=== PATIENT | female | born 1980 | race Caucasian/White ===

== ENCOUNTER 2016-11-27 18:27 | Emergency (ER) | payer OTHER ==
[~2016-11-27] VITALS: Ht 157.5 cm; Wt 77.1 kg
[2016-11-27] MEDS ORDERED: HYDROCODONE-AP1 EAC6 PO (19:41)
[2016-11-27 20:37] VITALS: BP 139/82
== END 2016-11-27 20:37 | disposition home or self-care (01) ==
LOC: ER 18:27
DX: S93.401A Sprain of unspecified ligament of right ankle, initial encounter (principal); W17.89XA Other fall from one level to another, initial encounter; Y93.9 Activity, unspecified; Y92.096 Garden or yard of other non-institutional residence as the place of occurrence of the external cause; Y99.9 Unspecified external cause status